=== PATIENT | female | born 1995 | race African-American/Black ===

== ENCOUNTER 2019-06-23 23:05 | Emergency (ER) | payer OTHER ==
[2019-06-23 23:10] VITALS: BP 134/74; PULSE 78; TEMP 97.8; BMI 26.6
--- NOTE | 2019-06-24 00:07 | PDOC ---
*Physical Exam - Vital Signs Last Vital Signs Temp Pulse Resp BP Pulse Ox 97.8 F 78 18 134/74 100 06/23/19 23:07 06/23/19 23:07 06/23/19 23:07 06/23/19 23:07 06/23/19 23:07 Medical Decision Making - Medical Decision Making 06/24/19 00:07 Patient seen by the advanced practice provider under my supervision. Ancillary testing reviewed as necessary. I agree with plan as outlined by the advanced practice provider. Discharge - Discharge Information Problems reviewed: Yes Clinical Impression/Diagnosis: Generalized pruritus Disposition: HOME - Follow up/Referral - Patient Discharge Instructions Additional Instructions: Take Benadryl every 6 hours as needed for itching. Apply calamine lotion also for itching. It is important that you follow-up with your primary doctor - Post Discharge Activity Work/Back to School Note: Back to Work
--- NOTE | 2019-06-24 00:33 | PDOC ---
History of Present Illness - General Chief Complaint: Itching Stated Complaint: RASH Time Seen by Provider: 06/23/19 23:49 History Source: Patient - History of Present Illness Initial Comments: 06/24/19 00:34 24-year-old female reports feeling itchy all over. Denies rash, bites, motion to allergens, new food. No past medical history "I want to make sure I do not have scabies " Past History - Past Medical History Allergies/Adverse Reactions: Allergies Allergy/AdvReac Type Severity Reaction Status Date / Time No Known Allergies Allergy Verified 06/23/19 23:10 Home Medications: Ambulatory Orders Ferrous Sulfate 1 tab PO DAILY 08/17/13 Vitamins ([facility]) - 1 tab PO DAILY 08/17/13 Acetaminophen [Tylenol .Regular Strength -] 650 mg PO Q4H PRN #0 tablet Ibuprofen [Motrin -] 600 mg PO Q6H PRN #0 tablet 08/19/13 Asthma: Yes (LAST ATTACK 03/2013) Cancer: No Cardiac Disorders: No COPD: No Diabetes: No HTN: No Seizures: No Thyroid Disease: No - Reproductive History (#): 1 - Psycho Social/Smoking Cessation Hx Smoking Status: No Smoking History: Never smoked Have you smoked in the past 12 months: No Number of Cigarettes Smoked Daily: 0 Hx Alcohol Use: No Drug/Substance Use Hx: No Hx Substance Use Treatment: No *Physical Exam - Vital Signs Last Vital Signs Temp Pulse Resp BP Pulse Ox 97.8 F 78 18 134/74 100 06/23/19 23:07 06/23/19 23:07 06/23/19 23:07 06/23/19 23:07 06/23/19 23:07 - Physical Exam General Appearance: Yes: Appropriately Dressed HEENT: positive: Normal ENT Inspection Respiratory/Chest: positive: Lungs Clear, Normal Breath Sounds Integumentary: positive: Normal Color, Dry, Warm. negative: Rash Neurologic: positive: Fully Oriented, Alert, Normal Mood/Affect ED Progress Note - Progress Note Progress Note: 06/24/19 05:41 General pruritis P: benadryl calamine lotion Discharge - Discharge Information Problems reviewed: Yes Clinical Impression/Diagnosis: Generalized pruritus Condition: Stable Disposition: HOME - Follow up/Referral - Patient Discharge Instructions Additional Instructions: Take Benadryl every 6 hours as needed for itching. Apply calamine lotion also for itching. It is important that you follow-up with your primary doctor - Post Discharge Activity Work/Back to School Note: Back to Work
== END 2019-06-24 01:05 | disposition home or self-care (01) ==
LOC: JER 23:05
DX: L29.8 Other pruritus (principal); Z87.09 Personal history of other diseases of the respiratory system
CPT/HCPCS: 99281-25

== ENCOUNTER 2022-06-17 17:23 | Emergency (ER) | payer OTHER ==
[2022-06-17 17:29] VITALS: BP 122/70; PULSE 81; RESP 18; TEMP 98.2; BMI 24.3
[2022-06-17] MEDS ORDERED: KETOROLAC TROMETHAMINE 30 MG/1 ML VIAL IM ONE (19:29)
[2022-06-17] MEDS ORDERED: diazePAM 5 MG TABLET PO ONE (19:33)
[2022-06-17] MEDS ORDERED: LIDOCAINE 5% TOPICAL PATCH TP ONE (19:33)
[2022-06-17] MEDS ORDERED: diazePAM 5 MG TABLET ONE (19:37)
[2022-06-17] MEDS ORDERED: LIDOCAINE 5% TOPICAL PATCH ONE (19:37)
[2022-06-17] MEDS ORDERED: KETOROLAC TROMETHAMINE 30 MG/1 ML VIAL ONE (19:38)
[2022-06-17] MEDS ORDERED: LIDOCAINE PATCH REMOVAL MC SCH (22:00)
== END 2022-06-17 20:39 | disposition home or self-care (01) ==
LOC: JERFT 17:23
DX: M54.2 Cervicalgia (principal); M25.512 Pain in left shoulder; M25.562 Pain in left knee; V49.40XA Driver injured in collision with unspecified motor vehicles in traffic accident, initial encounter
CPT/HCPCS: 72050-TC-FY; 73030-TC-LT-FY; 73562-TC-LT-FY; 99284-25